=== PATIENT | male | born 1975 | race Caucasian/White ===

== ENCOUNTER 2016-11-30 18:54 | Emergency (ER) | payer MEDICARE, OTHER ==
--- NOTE | ~2016-11-30 | CT4 ---
[facility] A Service of [facility] RADIOLOGY TEXT RESULTS PATIENT: FLORENCIO CRUZ JR LOCATION: SED : 79 UNIT #: [id number] AGE: [address]: Bo Storey MD SEX: M ORDER DR: [id number] [place] [id number] E MR#: [id number] Acc #: [id number] NAME: FLORENCIO CRUZ JR : 1975 SEX: M STUDY DATE/TIME: 11/30/2016 19:06 UNIT: SED ROOM: STUDY DESCRIPTION: CT Abd and Pelv Wo Cont Attending Physician: Bo Storey M.D. Ordering Physician: Sebastian Lacy M.D. Primary Care Physician: Felicitas Falcon M.D. MEDICAL IMAGING REPORT This report is preliminary unless electronic signature is present. EXAM CT abdomen and pelvis without contrast INDICATIONS Left flank pain and groin pain today. History of kidney stones. TECHNIQUE CT of the abdomen and pelvis was performed without contrast. Coronal and sagittal reformatted images obtained. This CT exam was performed with one or more of the following radiation dose reduction techniques: Automatic exposure control, adjustment of mA and/or kV according to patient size, and iterative reconstruction. COMPARISON 03/08/2016 FINDINGS The lung bases are clear. The liver and gallbladder are unremarkable. The spleen is unremarkable. There are multiple tiny nonobstructing stones within the left kidney. There is mild left-sided hydronephrosis. There is a 4 mm obstructing stone in the mid-left ureter. There is a single tiny nonobstructing stone in the lower pole of the right kidney. The adrenal glands are unremarkable. There is fatty infiltration of the pancreas. PELVIS: The colon is unremarkable. Normal appendix. Prostatic calcification. Remainder of the pelvis is unremarkable. Bone windows demonstrate postop changes lumbar spine. IMPRESSION 4 mm stone within the mid-left ureter with associated mild left-sided hydronephrosis. [facility] A Service of [facility] RADIOLOGY TEXT RESULTS PATIENT: FLORENCIO CRUZ JR LOCATION: SED : 77 UNIT #: [id number] AGE: [address]: Bo Storey MD SEX: M ORDER DR: Dictated by... Wai Cesar M.D. THIS IS AN ELECTRONICALLY VERIFIED REPORT Wai Cesar M.D. at 12/01/2016 10:04 AM JHONNY/[email or web address] TD: 11/30/2016 23:22 JOB #: [id number] MEDICAL IMAGING REPORT Page 1 of 1
[~2016-11-30 18:54] MED LIST: ATENOLOL; BACTRIM DS TABL1 TA2 PO; CELEXA PO; CELEXA20 MG PO; CIPRO PO; DIAZEPAM PO; FLEXERIL10 MG; FLEXERIL10 MG PO; FLOMAX0.4 M1 PO; IBUPROFEN800 MG PO; MEDROL PO; NAPROXEN PO; NO MEDICATIONS; PERCOCET 10/3251 TAB PO; PERCOCET 7.5-31 EACH PO; PERCOCET 7.5/321 TAB PO; PHENERGAN25 M1 PO; PHENERGAN25 MG PO; PRILOSEC PO; PRILOSEC20 MG PO; ROBAXIN500 MG PO; STOOL SOFTENER50 MG PO; VICODIN 5/1 TAB 5/50 PO; VOLTAREN75 MG PO; ZANAFLEX PO; ZOFRAN ODT4 MG/UDTAB PO; ZOFRANODT PO; ZOLOFT
[2016-11-30 18:55] LABS: BASOPHIL# 0.1 X10e3 (0-0.3); BASOPHIL% 1.1 % (0-2.5); DIFF IND NO; EOSINOPHIL# 0.1 X10e3 (0-0.7); EOSINOPHIL% 2.2 % (0.0-7.0); HEMATOCRIT 50.2 % (38.0-50.0); HEMOGLOBIN 17.7 gm/dL (13.0-16.0); LYMPHOCYTE# 1.8 X10e3 (1.0-3.5); LYMPHOCYTE% 31.4 % (17.0-45.0); MEAN CELL VOLUME 90.6 FL (83-96); MEAN CORPUSCULAR HEMOGLOBIN 31.9 PG (28-34); MEAN CORPUSCULAR HGB CONC 35.3 g/dL (30-36); MEAN PLATELET VOLUME 9.9 FL (6.5-11.5); MONOCYTE# 0.3 X10e3 (0-1.0); NEUTROPHIL# 3.3 X10e3 (1.5-7.1); NEUTROPHIL% 59.3 % (40-75); PLATELET COUNT 168 X10e3 (140-420); RED BLOOD COUNT 5.54 X10e (3.90-5.60); RED CELL DISTRIBUTION WIDTH 12.9 % (11.0-15.5); WHITE BLOOD COUNT 5.6 X10e3 (4.0-10.5)
[2016-11-30 19:05] LABS: ALBUMIN SERUM 4.7 g/dL (3.5-5.0); BILIRUBIN,TOTAL 0.8 mg/dL (0.2-2.0); BUN/CREATININE RATIO 10.76; CALCIUM SERUM 9.4 mg/dL (8.4-10.2); CREATININE SERUM 1.3 mg/dL (0.6-1.4); GLOM FILT RATE Estimated 68.8 mL/min (>60); POTASSIUM 3.6 mmol/L (3.5-5.1)
[2016-11-30 19:55] LABS: URINE SOURCE CLEAN CATCH
[2016-11-30 19:59] LABS: MICRO INDICATED? YES; URINE APPEARANCE HAZY; URINE BILIRUBIN NEG (NEG); URINE BLOOD 3+ (NEG); URINE COLOR DK YELLOW; URINE GLUCOSE NEG (NORM); URINE KETONE TRACE (NEG); URINE LEUKOCYTE ESTERASE NEG (NEG); URINE NITRATE NEG (NEG); URINE PROTEIN 2+ (NEG); URINE SPECIFIC GRAVITY 1.025 (1.003-1.035); URINE UROBILINOGEN 0.2 MG/DL (NORM)
[2016-11-30 20:03] LABS: URINE RBC 200-300 /[HPF] (0-2)
[2016-11-30 20:04] LABS: CULTURE INDICATED? NO; URINE BACTERIA NEG (NEG); URINE MUCUS PRESENT; URINE SQUAMOUS EPITHELIAL CELL FEW /[HPF]
== END 2016-11-30 21:40 | disposition home or self-care (01) ==
LOC: SED 18:54
PROVIDERS: Emergency Medicine
DX: N13.2 Hydronephrosis with renal and ureteral calculous obstruction (principal)
CPT/HCPCS: 36415; 74176; 80053; 81003; 85025; 96361; 96374; 96375; 99284; J1170; J1885; J2270; J2405

== ENCOUNTER 2017-03-31 09:33 | Emergency (ER) | payer MEDICARE, OTHER ==
--- NOTE | ~2017-03-31 | EKG ---
PATIENT: FLORENCIO CRUZ UNIT #: [id number] Ventricular Rate: 78 BPM Atrial Rate: 78 BPM P-R Interval: 146 ms QRS Duration: 96 ms Q-T Interval: 366 ms QTC Calculation(Bezet): 417 ms P Riggins: 43 degrees Calculated R Riggins: 45 degrees Calculated T Riggins: 56 degrees Diagnosis Line: Sinus rhythm with occasional Premature ventricular Diagnosis Line: complexes Diagnosis Line: Incomplete right bundle branch block Diagnosis Line: Baseline wander Otherwise normal ECG Diagnosis Line: No previous ECGs available Diagnosis Line: Confirmed by WILLI QUINTERO MD ([id number]) on 04/01/2017 Diagnosis Line: 4:37:43 PM INTERPRETING MD: INGRID HOOD
--- NOTE | ~2017-03-31 | CR72 ---
[facility] [place] [facility] RADIOLOGY TEXT RESULTS PATIENT: FLORENCIO CRUZ JR LOCATION: SED : 77 UNIT #: [id number] AGE: [address]: Cosme Chris MD SEX: M ORDER DR: [id number] [place] [id number] E MR#: [id number] Acc #: [id number] NAME: FLORENCIO CRUZ JR : 1975 SEX: M STUDY DATE/TIME: 03/31/2017 11:19 UNIT: SED ROOM: STUDY DESCRIPTION: CR Chest Single View Portable Attending Physician: Cosme Chris M.D. Ordering Physician: Cosme Chris M.D. Primary Care Physician: Felicitas Falcon M.D. MEDICAL IMAGING REPORT This report is preliminary unless electronic signature is present. EXAM AP portable chest 03/31/2017 HISTORY Chest pain, shortness breath for 2 days. COMPARISON None. FINDINGS Borderline cardiac enlargement. Pulmonary vascular distribution normal. No pleural effusion or pneumothorax. Stimulator leads project over the lower thoracic spine. No acute osseous abnormalities. IMPRESSION Borderline cardiac enlargement which appears stable. No acute chest findings. Dictated by... Karolyn Krishnamurthy M.D. THIS IS AN ELECTRONICALLY VERIFIED REPORT Karolyn Krishnamurthy M.D. at 04/01/2017 2:20 PM MELYSSA/kae TD: 03/31/2017 16:52 JOB #: [id number] MEDICAL IMAGING REPORT Page 1 of 1
[2017-03-31 10:43] LABS: BASOPHIL% 1.1 % (0-2.5); EOSINOPHIL# 0.2 X10e3 (0-0.7); EOSINOPHIL% 4.1 % (0.0-7.0); HEMOGLOBIN 17.5 gm/dL (13.0-16.0); LYMPHOCYTE# 1.1 X10e3 (1.0-3.5); MEAN CELL VOLUME 91.2 FL (83-96); MEAN CORPUSCULAR HEMOGLOBIN 32.6 PG (28-34); MEAN CORPUSCULAR HGB CONC 35.7 g/dL (30-36); MEAN PLATELET VOLUME 9.5 FL (6.5-11.5); MONOCYTE# 0.3 X10e3 (0-1.0); MONOCYTE% 6.9 % (3.0-12.0); NEUTROPHIL# 2.7 X10e3 (1.5-7.1); NEUTROPHIL% 62.9 % (40-75); PLATELET COUNT 155 X10e3 (140-420); RED BLOOD COUNT 5.37 X10e (3.90-5.60); RED CELL DISTRIBUTION WIDTH 13.2 % (11.0-15.5); WHITE BLOOD COUNT 4.3 X10e3 (4.0-10.5)
[2017-03-31 10:47] LABS: DIFF IND NO
[2017-03-31 10:55] LABS: POC - CKMB <1.0 ng/mL (0.0-7.9); POC - MYOGLOBIN 71.6 ng/mL (0.0-169.0); POC - TROPONIN <0.05 ng/mL (<=0.05)
[2017-03-31 11:01] LABS: ALBUMIN SERUM 4.3 g/dL (3.5-5.0); ALKALINE PHOSPHATASE 81 U/L (32-92); ALT (SGPT) 29 U/L (10-40); AST (SGOT) 25 U/L (10-42); BILIRUBIN,TOTAL 0.9 mg/dL (0.2-2.0); BLOOD UREA NITROGEN 9 mg/dL (9-23); CARBON DIOXIDE 24 mmol/L (22-31); CHLORIDE 107 mmol/L (100-111); GLOM FILT RATE Estimated 93.7 mL/min (>60); GLUCOSE FASTING 197 mg/dL (70-110); POTASSIUM 3.4 mmol/L (3.5-5.1); PROTEIN TOTAL SERUM 7.4 g/dL (6.0-8.3); SODIUM 138 mmol/L (135-145)
[2017-03-31 11:08] LABS: BILIRUBIN, DIRECT <0.1 mg/dL (0.0-0.2); BILIRUBIN,INDIRECT 0.8 mg/dL (0.0-0.9)
[2017-03-31 12:19] LABS: POC - CKMB 1.2 ng/mL (0.0-7.9); POC - MYOGLOBIN 58.2 ng/mL (0.0-169.0); POC - TROPONIN <0.05 ng/mL (<=0.05)
== END 2017-03-31 13:28 | disposition home or self-care (01) ==
LOC: SED 09:33
PROVIDERS: Emergency Medicine
DX: I49.3 Ventricular premature depolarization (principal); Z87.442 Personal history of urinary calculi; F17.200 Nicotine dependence, unspecified, uncomplicated
CPT/HCPCS: 36415; 71010; 80048; 80076; 82553; 83874; 84484; 85025; 93005; 96374; 99285; J2405